=== PATIENT | female | born 1955 | race Caucasian/White ===

== ENCOUNTER → 2018-10-20 | Outpatient (CLI) | payer MEDICAID ==
--- NOTE | 2018-10-20 12:20 | Diagnostic Imaging Report ---
INDICATION: Low back pain. Head surgery two years ago. Hurts off and on but worsening recently. EXAMINATION: Lumbar spine 10/20/2018. COMPARISONS: None. FINDINGS: Three views of the lumbar spine. There are bilateral intrapedicular screws with intervening rods extending from the L3 through the L4 levels. Interbody device at this level is also seen with an interbody device seen at L4-L5. Facet hypertrophy at L5-S1 is also noted. There is a scoliotic deformity. There is intervertebral disc space narrowing, endplate sclerosis and anterior spurring at the L2-L3 level. Remaining levels are fairly unremarkable. There is an oval density in the left upper quadrant, possibly a recently swallowed pill or other ingested material. IMPRESSION: 1. Postoperative findings unremarkable along the lumbar spine with degenerative findings as noted. Dictated by: Dictated on workstation # [id number]
== END ==
LOC: RAD FS 11:54
PROVIDERS: ATTEND Family Medicine
DX: M47.816 Spondylosis without myelopathy or radiculopathy, lumbar region (principal); Z98.1 Arthrodesis status; Z98.890 Other specified postprocedural states
CPT/HCPCS: 72100

== ENCOUNTER → 2020-01-24 | Outpatient (CLI) | payer MEDICAID ==
[~2020-01-24] MED LIST: GADOBUTROL 7.5 MMOL/7.5 ML (GADAVIST) VIAL IV ONE
[2020-01-24 08:12] LABS: ALBUMIN 4.2 GM/DL (3.2-4.5); POTASSIUM 3.5 MMOL/L (3.6-5.0)
[2020-01-24 08:13] LABS: CALCIUM 9.2 MG/DL (8.5-10.1)
[2020-01-24 08:14] LABS: TOTAL PROTEIN 8.2 GM/DL (6.4-8.2)
[2020-01-24 08:16] LABS: BILIRUBIN,TOTAL 0.4 MG/DL (0.1-1.0)
[2020-01-24 08:18] LABS: CREATININE SERUM 1.22 MG/DL (0.60-1.30)
--- NOTE | 2020-01-24 12:34 | Diagnostic Imaging Report ---
PROCEDURE: MRI lumbar spine with and without contrast. TECHNIQUE: Multiplanar, multisequence MRI of the lumbar spine was performed with and without contrast. INDICATION: Low back pain. History of back surgery. COMPARISON: 10/20/2018. FINDINGS: 5 lumbar type vertebral bodies are visualized with the last well-formed disc space designated L5-S1. No acute fracture or dislocation is seen in the lumbar spine. Posterior fusion changes are visualized at L3-L4 with interbody fusion at L3-L4 and L4-L5. Endplate degenerative changes are present at the L2-L3 level. No abnormal enhancement is visualized. The conus terminates at the L1 level. No masses are seen associated with the conus or nerve roots of the cauda equina. No epidural collections are identified. Multilevel degenerative changes are seen in the lumbar spine with disc bulges, facet hypertrophy, and buckling of the ligamentum flavum. T12-L1: No significant spinal canal or foraminal stenosis. L1-L2: No significant spinal canal or foraminal stenosis. L2-L3: Broad-based disc bulge, facet hypertrophy, buckling of ligamentum flavum results in mild spinal canal narrowing and moderate right and vokh-fw-syiokicd left foraminal stenosis. L3-L4: Facet hypertrophy results in no significant spinal canal narrowing and mild bilateral foraminal narrowing. L4-L5: Facet hypertrophy results in no significant spinal canal narrowing and mild right and no left foraminal narrowing. L5-S1: Broad-based disc bulge, facet hypertrophy, and buckling of the ligamentum flavum results in no significant spinal canal narrowing and moderate left and no right foraminal narrowing. Atrophy of the paraspinal musculature is noted. IMPRESSION: 1. No acute fracture or dislocation in the lumbar spine. No abnormal enhancement. 2. Multilevel degenerative changes in the lumbar spine, greatest at L2-L3. 3. Endplate degenerative changes are present at the L2-L3 level. 4. Posterior fusion from L3 to L4 with interbody fusion at the L3-L4 and L4-L5 disc spaces. Dictated by: Dictated on workstation # [id number]
== END ==
LOC: RAD 09:30
PROVIDERS: ATTEND Family Medicine
DX: M48.061 Spinal stenosis, lumbar region without neurogenic claudication (principal); M47.816 Spondylosis without myelopathy or radiculopathy, lumbar region; Z98.1 Arthrodesis status; R73.09 Other abnormal glucose
CPT/HCPCS: 36415; 72158; 80053

== ENCOUNTER → 2020-10-11 | Outpatient (CLI) | payer MEDICARE, MEDICAID ==
[~2020-10-11] MED LIST changes: +GADOBUTROL 10 MMOL/10 ML (GADAVIST) VIAL IV ONE; -GADOBUTROL 7.5 MMOL/7.5 ML (GADAVIST) VIAL IV ONE
--- NOTE | 2020-10-11 09:03 | Diagnostic Imaging Report ---
PROCEDURE: MR imaging cervical spine with and without contrast. TECHNIQUE: Multiplanar and multisequence MRI of the cervical spine was performed with and without contrast. INDICATION: Previous cervical spine surgeries. Patient is having increasing pain in the neck. No prior cervical spine MRI studies are available for comparison. FINDINGS: Curvature and alignment of the cervical spine is normal. There is osseous union between the C5 and C6 vertebral bodies. The marrow signal intensity is normal. No geographic marrow lesion is seen. There is some generalized degenerative disc disease with disc desiccation at all levels. There is some disc space narrowing C4-C5 and C6-C7 levels. The cervical cord show normal homogeneous signal intensity and normal morphology. C2-C3: Central canal and neural foramina are widely patent. C3-C4: Uncovertebral joint degenerative change does produce moderate neural foraminal narrowing bilaterally. Central canal is patent. C4-C5: There is a wide based midline disc bulge/osteophyte indenting the ventral thecal sac. This does produce mild central canal narrowing. There is also moderate left neural foraminal narrowing due to uncovertebral joint degenerative change. C5-C6: No central canal or neural foraminal narrowing is seen. C6/C7: Broad-based disc/osteophyte complex indents the ventral thecal sac. There is fvfd-vs-qztpxupy narrowing of the central canal. There is also moderate bilateral neural foraminal narrowing. C7-T1: Unremarkable. No abnormal enhancement is identified on postcontrast images. IMPRESSION: Postoperative changes with fusion of the C5 and C6 vertebral bodies. There is some generalized cervical spondylosis with mild central canal neural foraminal narrowing described level by level above. Dictated by: Dictated on workstation # [id number]
--- NOTE | 2020-10-11 09:27 | Diagnostic Imaging Report ---
PROCEDURE: MRI lumbar spine with and without contrast. TECHNIQUE: Multiplanar, multisequence MRI of the lumbar spine was performed with and without contrast. INDICATION: Increasing back pain. Curvature and alignment of the lumbar spine is normal. There are postoperative changes from posterior instrumented fusion with stabilization rods and pedicle screws transfixing the L3-L4 level. This does produce moderate artifact. Vertebral body heights are maintained. No acute compression fracture or geographic marrow lesion is seen apart from benign hemangiolipoma. There is some desiccation of the disc at multiple levels compatible with degenerative disc disease with disc space narrowing at L2-L3 level. The conus is unremarkable. T12-L1: Central canal and neuroforamina are widely patent. L1-L2: No central canal or neuroforaminal narrowing is identified. L2-L3: There is broad-based disc/osteophyte complex indenting the ventral thecal sac. There is some mild narrowing of the canal. There is moderate narrowing of bilateral lateral recesses as well as moderate narrowing of the bilateral neuroforamina. L3-L4: Central canal is widely patent. Neural foramina are somewhat obscured by artifact from hardware. L4-L5: Central canal is widely patent. There is some obscuration of the neural foramina due to hardware artifact. L5-S1: There are hypertrophic facet changes. There is some ligamentous thickening. Broad-based disc/osteophyte complex indents the ventral thecal sac. Central canal is patent. Neural foramina appear patent. No abnormal enhancement is identified following contrast administration. IMPRESSION: Postoperative changes of posterior instrumented fusion L3-L4 level. There is some generalized lumbar spondylosis, greatest at L2-L3 level resulting in some spinal canal or neural foraminal narrowing described above. No acute compression fracture is detected. Dictated by: Dictated on workstation # [id number]
== END ==
LOC: RAD 08:00
PROVIDERS: ATTEND Family Medicine
DX: M47.22 Other spondylosis with radiculopathy, cervical region (principal); M47.816 Spondylosis without myelopathy or radiculopathy, lumbar region; M50.123 Cervical disc disorder at C6-C7 level with radiculopathy; M51.36 Other intervertebral disc degeneration, lumbar region; M48.02 Spinal stenosis, cervical region; M48.061 Spinal stenosis, lumbar region without neurogenic claudication; M25.78 Osteophyte, vertebrae; Z98.1 Arthrodesis status
CPT/HCPCS: 72156; 72158

== ENCOUNTER → 2021-05-20 | Outpatient (CLI) | payer MEDICARE, MEDICAID ==
--- NOTE | 2021-05-20 12:59 | Diagnostic Imaging Report ---
INDICATION: Acute mid back pain. EXAMINATION: Lumbar spine on 05/20/2021. COMPARISON: 10/20/2018. FINDINGS: Five views of the lumbar spine demonstrate bilateral intrapedicular screws with intervening rods extending from L3 to L4. There is an interbody device at the L3-L4 and L4-L5 levels. Facet hypertrophy is seen at all levels. There is minimal grade 1 retrolisthesis of L4 on L5. Remaining alignment is preserved. There are no compression fractures. There is intervertebral disc space narrowing, vacuum phenomenon, and anterior spurring at L2-L3. There is a mild scoliotic deformity. IMPRESSION: Post operative changes and degenerative disease as above. Dictated by: Dictated on workstation # [id number]
--- NOTE | 2021-05-20 16:30 | Diagnostic Imaging Report ---
INDICATION: Back pain. TECHNIQUE: AP and lateral views of the thoracic spine were obtained. FINDINGS: The thoracic vertebrae are normal in height and alignment. There is no fracture, subluxation, or compression deformity. There is no significant disc space narrowing. IMPRESSION: Negative thoracic spine series. Dictated by: Dictated on workstation # [id number]
== END ==
LOC: RAD FS 10:47
PROVIDERS: ATTEND Family Medicine
DX: M47.816 Spondylosis without myelopathy or radiculopathy, lumbar region (principal); M48.061 Spinal stenosis, lumbar region without neurogenic claudication; M41.86 Other forms of scoliosis, lumbar region; M54.6 Pain in thoracic spine; Z98.890 Other specified postprocedural states
CPT/HCPCS: 72072; 72110

== ENCOUNTER → 2021-08-15 | Outpatient (CLI) | payer MEDICARE, MEDICAID ==
--- NOTE | 2021-08-15 09:40 | Diagnostic Imaging Report ---
INDICATION: Chronic back pain, has had previous cervical and lumbar spinal surgeries. I have no previous dedicated thoracic MRI. Noncontrasted multiplanar and multisequence MRI thoracic spine performed. Thoracic spinal cord has a normal volume and normal morphology and normal signal intensity. CSF circumscribes the cord at each vertebral body and disc space level. There was no substantial degree of thoracic canal stenosis. There is some straightening of normal thoracic kyphotic curvature but no listhesis. The vertebral statures themselves are within normal limits and marrow signal intensity was unremarkable with few incidental scattered hemangiomas noted. There is mild mid to lower thoracic spondylosis without resultant canal or foraminal stenoses. No focal disc herniation. There is mild multilevel facet arthrosis. Ligamentous structures intact. Acute epidural abnormality. IMPRESSION: Some mild straightening and degenerative changes in the thoracic spine but no substantial canal or foraminal stenosis. Normal cord and no acute bony abnormality. Dictated by: Dictated on workstation # [id number]
--- NOTE | 2021-08-15 10:05 | Diagnostic Imaging Report ---
PROCEDURE: MRI lumbar spine. TECHNIQUE: Multiplanar, multisequence MRI of the lumbar spine was performed without contrast. DATE: August 15, 2021. COMPARISON: Lumbar spine radiographs May 20, 2021. MRI lumbar spine October 11, 2020. INDICATION: 66-year-old female, chronic low back pain. FINDINGS: There is a lumbar levocurvature. There is no evidence of a diffuse marrow infiltrating or replacing process. There is posterior spinal fusion hardware at L3-L4. There is disc spacer material at L3-L4 and L4-L5. There is partial ankylosis across both of these disc spaces. There is moderate to severe disc height loss at L2-L3 with adjacent Modic endplate degenerative related changes. There are mild disc degenerative changes of the lower thoracic spine. The visualized cord and conus medullaris is unremarkable and terminates at the L1-L2 level. There is a T2 hyperintense left renal lesion on axial T2 sequence image 5 measuring 8 mm in size which is too small to characterize. L1-L2: There is no disc bulge. The facet joints and ligamentum flavum are unremarkable. There is no foraminal narrowing. There is no spinal canal stenosis. L2-L3: There is diffuse disc bulge. There are very mild bilateral facet degenerative changes without ligamentum flavum hypertrophy. There is prominence of the posterior epidural fat. There is no foraminal narrowing. There is mild spinal canal stenosis. L3-L4: There is no disc bulge. The facet joints and ligamentum flavum are unremarkable. There is no foraminal narrowing. There is no spinal canal stenosis. L4-L5: There is no disc bulge. The facet joints and ligamentum flavum are unremarkable. There is no foraminal narrowing. There is no spinal canal stenosis. L5-S1: There is an annular tear with small posterior disc protrusion. There is no identified nerve root contact. There are lgom-lg-tzetrjxo bilateral facet degenerative changes without prominent ligamentum flavum hypertrophy. There is mild left foraminal narrowing. There is no spinal canal stenosis. IMPRESSION: 1. Diffuse disc bulge and very mild bilateral facet degenerative changes at L2-L3 with prominence of the posterior epidural fat causing mild spinal stenosis. Similar to October 11, 2020. 2. Postoperative changes spanning L3-L4 and L4-L5. 3. No focal concerning bone lesion, compression deformity, or fracture. 4. L5-S1 annular tear with small central disc protrusion without foraminal or spinal stenosis. This is slightly increased in size since October 11, 2020. Dictated by: Dictated on workstation # [id number]
== END ==
LOC: RAD 08:45
PROVIDERS: ATTEND Family Medicine
DX: M47.25 Other spondylosis with radiculopathy, thoracolumbar region (principal); M51.17 Intervertebral disc disorders with radiculopathy, lumbosacral region; M48.061 Spinal stenosis, lumbar region without neurogenic claudication; Z98.890 Other specified postprocedural states
CPT/HCPCS: 72146; 72148

== ENCOUNTER → 2021-08-16 | Outpatient (CLI) | payer MEDICARE, MEDICAID ==
--- NOTE | 2021-08-16 13:13 | Diagnostic Imaging Report ---
PROCEDURE: MR imaging cervical spine without contrast. TECHNIQUE: Multiplanar, multisequence MR imaging of the cervical spine was performed without contrast. DATE: August 16, 2021. COMPARISON: MRI cervical spine October 11, 2020. INDICATION: 66-year-old female, chronic neck pain. FINDINGS: There is ankylosis across the C5-C6 disc space which is consistent with a long-standing fusion given reduced AP diameter of the vertebral bodies. This is likely congenital fusion or could relate to sequela of prior process such as juvenile idiopathic arthritis. The alignment of the cervical spine is unremarkable. There is no evidence of a diffuse marrow infiltrating or replacing process. There is no identified focal concerning bone lesion. There is no identified abnormal signal in the cervical spinal cord. There is mild disc loss at C4-C5 with adjacent endplate degenerative related changes. There is also mild to moderate disc height loss at C6-C7 with mild adjacent endplate degenerative related changes. C2-C3: There is no disc bulge. The uncovertebral and facet joints are unremarkable. There is no foraminal narrowing. There is no spinal canal stenosis. C3-C4: There is no disc bulge. The uncovertebral and facet joints are unremarkable. There is no foraminal narrowing. There is no spinal canal stenosis. C4-C5: There is a posterior disc osteophyte complex. There are bilateral uncovertebral degenerative changes. There is moderate to severe bilateral foraminal narrowing. There is moderate to severe spinal canal stenosis. C5-C6: There is no disc bulge. The uncovertebral and facet joints are unremarkable. There is no foraminal narrowing. There is no spinal canal stenosis. C6-C7: There is a posterior disc osteophyte complex. There are mild bilateral uncovertebral degenerative changes. There is moderate right and moderate to severe left foraminal narrowing. There is moderate spinal canal stenosis. C7-T1: There is no disc bulge. The uncovertebral and facet joints are unremarkable. There is no foraminal narrowing. There is no spinal canal stenosis. IMPRESSION: 1. Disc and uncovertebral degenerative changes of the cervical spine most notably present at C4-C5 and C6-C7 as described above. 2. No focal concerning bone lesion. 3. No identified abnormal signal in the cervical spinal cord. Dictated by: Dictated on workstation # [id number]
== END ==
LOC: RAD 10:15
PROVIDERS: ATTEND Family Medicine
DX: M47.22 Other spondylosis with radiculopathy, cervical region (principal); M48.02 Spinal stenosis, cervical region; M48.061 Spinal stenosis, lumbar region without neurogenic claudication; M43.22 Fusion of spine, cervical region; M25.78 Osteophyte, vertebrae
CPT/HCPCS: 72141

== ENCOUNTER → 2022-03-10 | Outpatient (CLI) | payer OTHER, MEDICARE, MEDICAID ==
--- NOTE | 2022-03-10 12:50 | Diagnostic Imaging Report ---
INDICATION: Coccydynia. COMPARISON: None. FINDINGS: Multiple radiographic views of the sacrum and coccyx were obtained and show no fractures, dislocations, or other acute bony abnormalities. Joint spaces are well maintained throughout. The soft tissues appear unremarkable. No unexpected radiopaque foreign bodies are identified. IMPRESSION: Unremarkable radiographic exam of the sacrum and coccyx. Dictated by: Dictated on workstation # [id number]
== END ==
LOC: RAD FS 10:47
PROVIDERS: ATTEND Neurological Surgery
DX: M53.3 Sacrococcygeal disorders, not elsewhere classified (principal)
CPT/HCPCS: 72220

== ENCOUNTER → 2022-03-31 | Outpatient (CLI) | payer MEDICARE, MEDICAID ==
--- NOTE | 2022-03-31 12:58 | Diagnostic Imaging Report ---
INDICATION: Right knee pain. TIME OF EXAM: 11:10 AM. TECHNIQUE: Three views of the right knee were obtained. FINDINGS: There is medial and patellofemoral compartmental degenerative change with moderate joint space narrowing and marginal spurring. There is some spurring of the tibial spines. The lateral compartment is fairly well maintained. The articular surfaces are smooth. No fracture, dislocation, or effusion is identified. IMPRESSION: Degenerative changes. No acute bony abnormality is detected. Dictated by: Dictated on workstation # [id number]
== END ==
LOC: RAD FS 10:49
PROVIDERS: ATTEND Family Medicine
DX: M17.11 Unilateral primary osteoarthritis, right knee (principal)
CPT/HCPCS: 73562

== ENCOUNTER 2022-04-30 05:49 | Outpatient (CLI) | payer MEDICARE, MEDICAID ==
[~2022-04-30] VITALS: Ht 168 cm; Wt 93.3 kg
== END 2022-05-02 10:10 | disposition home or self-care (01) ==
LOC: PREOP 05:49
PROVIDERS: ATTEND Orthopaedic Surgery
DX: Z01.818 Encounter for other preprocedural examination (principal)

== ENCOUNTER 2022-05-07 07:47 | Day surgery (SDC) | payer MEDICARE, MEDICAID ==
--- NOTE | 2022-04-30 06:37 | HISTORY AND PHYSICAL ---
This will be for outpatient surgery on 05/07/2022 for right knee arthroscopy. HISTORY: The patient is a 67-year-old female with complaints of right anterior medial knee pain. She has undergone treatment with injections, which provided temporary relief of her symptoms. She reports that this has been progressive in nature. She reports pain with kneeling and squatting. Due to functional impairment and failure to improve with conservative measures, the patient elected to proceed with surgical intervention. REVIEW OF SYSTEMS: No chest pain. No shortness of breath. No dysuria. PAST MEDICAL HISTORY: Hypercholesterolemia, hypertension, depression, anxiety, arthritis, diabetes, chronic kidney disease, headaches, neuropathy, back pain. PAST SURGICAL HISTORY: Cervical spine fusion, lumbar, hysterectomy, elbow, appendectomy, ankle, claw toes and lumbar fusion. FAMILY HISTORY: Significant for cancer. PRIMARY CARE PROVIDER: Dr. Montoya. ALLERGIES: PHENOTHIAZINE, ADHESIVE TAPE, IODINE, LATEX. SOCIAL HISTORY: The patient denies alcohol and tobacco use. Radiographs reveal moderate medial and patellofemoral arthrosis. PHYSICAL EXAMINATION: GENERAL: The patient is well-developed, well-nourished, in no acute distress. HEENT: Normocephalic, atraumatic. Pupils were equal, round, reactive to light. Oropharynx is clear. NECK: Supple. No lymphadenopathy. LUNGS: Clear to auscultation bilaterally. HEART: Regular rate and rhythm. ABDOMEN: Soft, nontender, nondistended. EXTREMITIES: The right knee demonstrates pain with patellar loading. She has crepitus with patellar loading as well. She is tender along the medial joint line. She has pain medially with Carlos's. Slight effusions noted. Range of motion 0/2/125. She is ligamentously stable in all planes. 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 PLAN: Right knee arthroscopy with chondroplasty and partial meniscectomy. The risks, benefits, options, ramifications, and recovery were discussed at length with the patient. She understands and wishes to proceed. Job ID: [id number] DocumentID: [id number] Dictated Date: 04/21/2022 12:41:00 Melt Down Furnace Operator Date: 04/21/2022 16:12:00 Dictated By: BRENTON GÓMEZ MD
[2022-05-07] VITALS (12 sets, daily range): BP systolic 133–174; BP diastolic 78–96
[~2022-05-07] VITALS: Ht 168 cm; Wt 93.3 kg
[~2022-05-07 07:47] MED LIST changes: -GADOBUTROL 10 MMOL/10 ML (GADAVIST) VIAL IV ONE; +oxyCODONE/APAP 5/325MG (PERCOCET 5) TABLET PO PRN
[2022-05-07] MEDS ORDERED: BUPIVACAINE 0.25% 30 ML (SENSORCAINE) VIAL ONE (08:02)
[2022-05-07] MEDS ORDERED: morphine PF (DURAMORPH) 10 MG/10 ML AMP ONE (08:02)
[2022-05-07] MEDS ORDERED: proPOfol 200 MG/20 ML (DIPRIVAN) VIAL IV ONE (08:06)
[2022-05-07] MEDS ORDERED: LIDOCAINE PF 2% 5 ML (XYLOCAINE) VIAL ONE (08:06)
[2022-05-07] MEDS ORDERED: ONDANSETRON 4 MG/2 ML (SDV) Z0FRAN ONE (08:06)
[2022-05-07] MEDS ORDERED: SEVOFLURANE (ULTANE) 15 ML INHAL SOLN ONE ×2 (08:06→10:01)
[2022-05-07] MEDS ORDERED: fentaNYL INJ 100 MCG/2 ML AMP ONE (08:06)
[2022-05-07] MEDS ORDERED: MIDAZOLAM 2 MG/2 ML (VERSED) VIAL ONE (08:06)
[2022-05-07] MEDS ORDERED: ceFAZolin INJECTION 1,000 MG in NS (IVPB) 50 ML IV ONE (08:30)
[2022-05-07] MEDS ORDERED: LACTATED RINGERS 1,000 ML IV PRN (08:30)
--- NOTE | 2022-05-07 09:17 | Progress Note-Pre Operative ---
Pre-Operative Progress Note Date of Available H&P: Apr 21, 2022 Date H&P Reviewed: May 07, 2022 Time H&P Reviewed: 09:08 Changes from last HP none Pre-Operative Diagnosis: right knee medial meniscus tear and chondromalacia BRENTON GÓMEZ MD May 07, 2022 09:17
--- NOTE | 2022-05-07 09:19 | Progress Note-Post Operative ---
Post-Operative Progess Note Surgeon (s)/Grade Checker (s) Surgeon BRENTON GÓMEZ MD Grade Checker: Satinder Laura Pre-Operative Diagnosis right knee medial meniscus tear and chondromalacia Post-Operative Diagnosis right knee medial meniscus tear and chondromalacia of the medial femoral condyle, lateral tibial plateau and patella Procedure & Operative Findings Date of Procedure 05/07/22 Procedure Performed/Findings right knee arthroscopic medial partial meniscectomy and chondroplasty of the medial femoral condyle, lateral tibial plateau and patella Anesthesia Type GETA Estimated Blood Loss Estimated blood loss (mL): minimal Specimens/Packing Specimens Removed none Packing: none BRENTON GÓMEZ MD May 07, 2022 09:19
[2022-05-07] MEDS ORDERED: GLYCOPYRROLATE 0.2 MG/ML (ROBINUL) 2 ML VIAL ONE (09:26)
[2022-05-07] MEDS ORDERED: ONDANSETRON 4 MG/2 ML (SDV) Z0FRAN IVP PRN (10:00)
[2022-05-07] MEDS ORDERED: HYDROmorphone 2 MG/ML VIAL (DILAUDID) IV ONE (10:00)
--- NOTE | 2022-05-07 11:25 | Anesthesia-General Post-Op ---
General Patient Condition Mental Status/LOC: Same as Preop Cardiovascular: Satisfactory Nausea/Vomiting: Absent Respiratory: Satisfactory Pain: Controlled Complications: Absent Post Op Complications Complications None Follow Up Care/Instructions Patient Instructions None needed. Anesthesia/Patient Condition Patient Condition Patient is doing well, no complaints, stable vital signs, no apparent adverse anesthesia problems. No complications reported per nursing. D/C home per [facility] [place] [facility] [place]: Yes SOFIA HERRERA CRNA May 07, 2022 11:25
--- NOTE | 2022-05-07 14:46 | OPERATIVE REPORT ---
DATE OF SERVICE: 05/07/2022 PREOPERATIVE DIAGNOSES: 1. Right knee medial meniscus tear. 2. Right knee chondromalacia of medial femoral condyle. 3. Right knee chondromalacia patella. POSTOPERATIVE DIAGNOSES: 1. Right knee medial meniscus tear. 2. Right knee chondromalacia of medial femoral condyle. 3. Right knee chondromalacia patella. 4. Right knee chondromalacia of lateral tibial plateau. PROCEDURES: 1. Right knee arthroscopic partial medial meniscectomy. 2. Right knee arthroscopic chondroplasty of medial femoral condyle. 3. Right knee arthroscopic chondroplasty of patella. 4. Right knee arthroscopic chondroplasty of the lateral tibial plateau. SURGEON: Stan Gómez MD SENIOR STAFF ACCOUNTANT: Satinder Laura, who assisted throughout the procedure and closed the incisions. ANESTHESIA: General endotracheal by Alexi Jordan CRNA. TOURNIQUET TIME: Not applicable. ESTIMATED BLOOD LOSS: Minimal. DRAINS: None. COMPLICATIONS: None. POSTOPERATIVE PLANS: Routine arthroscopy protocol. The patient was transferred to recovery room awake and stable condition. STATEMENT OF MEDICAL NECESSITY: The patient is a 67-year-old female with complaints of right anterior knee pain and medial knee pain, catching, locking and swelling. She complained of mechanical symptoms. Radiographs revealed patellofemoral and medial joint space narrowing. She understood the arthroscopy could help with her mechanical symptoms, but would not alleviate her arthritic symptoms. Examination under anesthesia revealed range of motion 0/2/135 with negative Philippe, negative anterior and posterior drawer. No varus or valgus laxity and negative pivot shift. ARTHROSCOPIC FINDINGS: The patella demonstrated grade IV chondral loss inferiorly and a 20 x 20 area of surrounding grade 3 flaps at the periphery. The trochlea demonstrated grade 2 chondral loss with no unstable chondral flaps. The medial and lateral gutters were clear. The ACL and PCL were intact. The lateral compartment demonstrated grade 2 chondral flaps of the central portion of the tibial plateau in a 10 x 10 area. No meniscal pathology was noted laterally. Medially, the patient had grade 4 chondral loss anteriorly in a 10 x 10 area with grade 3 chondral flaps posterior to that on the femoral condyle and grade 2 chondral flaps of the central portion of the tibial plateau in an 8 x 8 area and tear of the anterior horn of the medial meniscus involving approximately one-third of the anterior horn. DESCRIPTION OF PROCEDURE: After risks and benefits of the procedure were discussed and questions were answered and informed consent signed and placed on chart, operative site was confirmed in the preoperative holding initialed by surgeon. The patient was then transferred to the operating room and after adequate levels of general endotracheal anesthetic were obtained, a timeout was called, confirming the operative site. Examination under anesthesia was performed with the above findings noted. Right lower extremity was prepped and draped in the usual sterile fashion. Knee joint was injected with 60 mL fluid and standard inferolateral portal was placed through the arthroscope and under direct visualization, inferior medial portal was created. The menisci cruciates carefully probed with the above findings noted. The unstable chondral flaps on the patella were debrided with a shaver back to a stable edge. Scope was then redirected into the lateral compartment and unstable chondral flaps and the lateral tibial plateau were debrided with a shaver back to a stable edge. Scope was redirected into the medial compartment. The unstable chondral flaps on the medial femoral condyle and the medial femoral condyle were debrided with a shaver back to a stable edge and the medial meniscus tear anteriorly was debrided with a shaver back to a stable edge. This was carefully probed with no further tearing or instability noted. The knee was copiously irrigated. The portal sites were closed with 4-0 nylon in simple fashion. Knee was injected with Duramorph. Port sites were infiltrated with plain Marcaine. A soft dressing was applied. The patient was transported to the recovery room awake and stable condition. Job ID: [id number] DocumentID: [id number] Dictated Date: 05/07/2022 10:00:14 Validation Architect Date: 05/07/2022 14:44:00 Dictated By: STAN GÓMEZ MD
--- NOTE | 2022-05-07 15:30 | Physical Therapy Ortho Eval ---
PT Orthopedic Evaluation Type of Surgery Knee Scope Prior Level of Function Current Living Status: Significant Other Locomotion (Upon Admit): Independent Established Durable Medical Eq: Front Wheeled Walker Subjective Entry Into Home: Stairs Without Railing Steps Into Home: 3 Steps Inside Home: 0 Motor Control Motor Control: Motor Control WNL ROM ROM: WFL, except focal deficit Strength Strength: Gen Weak,No Focal Deficit Transfer SCALE: Activities may be completed with or without assistive devices. 4-Ilwsangicv-mejrjoc completes the activity by him/herself with no assistance from a helper. 5-Set-up or Clean-up Assistance-helper sets up or cleans up; patient completes activity. [place] assists only prior to or following the activity. 4-Supervision or Touching Assistance-helper provides verbal cues and/or vito jen/steadying and/or contact guard assistance as patient completes activity. Assistance may be provided throughout the activity or intermittently. 3-Partial/Moderate Assistance-helper does LESS THAN HALF the effort. [place] lifts, holds or supports trunk or limbs, but provides less than half the effort. 2-Substantial/Maximal Assistance-helper does MORE THAN HALF the effort. [place] lifts or holds trunk or limbs and provides more than half the effort. 8-Ygthbutre-xotpil does ALL the effort. Patient does none of the effort to complete the activity. Or, the assistance of 2 or more helpers is required for the patient to complete the activity. If activity was not attempted, code reason: 7-Patient Refused. 9-Not Applicable-not attempted and the patient did not perform the activity before the current illness, exacerbation or injury. 10-Not Attempted due to Environmental Limitations-(lack of equipment, weather restraints, etc.). 88-Not Attempted due to Medical Conditions or Safety Concerns. Transfers (B, C, W/C) (QC): 4 Gait Gait Assistive Device: FWW Right Lower Extremity: Right Weight Bearing Status RLE: Weight Bearing/Tolerated Left Lower Extremity: Left Weight Bearing Status LLE: Full Weight Bearing Gait (QC): 4 Distance: 40 feet Stairs #of Steps: 3 Walking Assistive Device: Walker Treatment Rendered Treatment: Gait Train, Step Train Assessment/Goals Goal Time Frame: 1 Visit Safe Ambulation: Yes Plan Treatment Plan: Discharge Time Time In: 1152 Time Out: 1209 Total Billed Treatment Time: 17 Billed Treatment Time Visit, DARRYL REID PT May 07, 2022 15:29
== END 2022-05-07 12:30 | disposition home or self-care (01) ==
LOC: SDC 07:47
PROVIDERS: ATTEND Orthopaedic Surgery
DX: S83.241A Other tear of medial meniscus, current injury, right knee, initial encounter (principal); M22.41 Chondromalacia patellae, right knee; E11.9 Type 2 diabetes mellitus without complications; Z68.33 Body mass index [BMI] 33.0-33.9, adult; E66.9 Obesity, unspecified; X58.XXXA Exposure to other specified factors, initial encounter
CPT/HCPCS: 82947; 87081

== ENCOUNTER → 2022-10-01 | Outpatient (CLI) | payer MEDICARE, MEDICAID ==
--- NOTE | 2022-10-01 10:05 | Diagnostic Imaging Report ---
PROCEDURE: MR imaging of the brain without contrast. TECHNIQUE: Multiplanar, multisequence MR imaging of the brain was performed without contrast. INDICATION: Persistent headaches. No prior studies are available for comparison. The ventricles and sulci are within normal limits. No sulcal effacement or midline shift is identified. No diffusion restriction is identified. The normal expected flow-voids within the carotid siphons are seen. No acute intra-axial or extra-axial hemorrhage is detected. Corpus callosum is unremarkable. The sella and parasellar structures are unremarkable. IMPRESSION: Unremarkable noncontrast MRI of the brain. No acute abnormality is detected. Dictated by: Dictated on workstation # [id number]
== END ==
LOC: RAD 08:36
PROVIDERS: ATTEND Family Medicine
DX: R51.9 Headache, unspecified (principal)
CPT/HCPCS: 70551